=== PATIENT | female | born 1995 | race Caucasian/White ===

== ENCOUNTER 2019-05-05 05:15 | Emergency (ER) | payer OTHER ==
[~2019-05-05] VITALS: Ht 167.6 cm; Wt 65.8 kg
[2019-05-05 05:58] VITALS: BP 133/69
--- NOTE | 2019-05-05 06:04 | NUR ---
PT CAME TO THE ED C/O OF JAW PAIN. CLICKING NOTED. PT ALSO ENDORSES THROAT PAIN RADIATING TO THE L SIDE OF THE NECK. WORSENS WHEN SWALLOWING. PT AAOX4, VSS, RR EVEN AND UNLABORED ON RA W/ AND NOTED. PT CONNECTED TO THE MONITOR AND POX
--- NOTE | 2019-05-05 06:19 | NUR ---
Patient discharged to home in stable condition. Written and verbal after care instructions given. Patient verbalizes understanding of instruction.
== END 2019-05-05 06:19 | disposition home or self-care (01) ==
LOC: ER 05:15
DX: M26.603 Bilateral temporomandibular joint disorder, unspecified (principal)